=== PATIENT | male | born 1945 | race African-American/Black ===

== ENCOUNTER 2024-02-04 19:27 | Inpatient (IN) | payer MEDICARE, OTHER ==
[~2024-02-04] VITALS: Ht 182.9 cm; Wt 126.7 kg
[~2024-02-04 19:27] MED LIST: ACETAMINOPHEN W1 TA6 PO; FORTAMET1000 MG PO; LISINOPRIL/HCTZ1 TAB PO; NOVOLIN R100 U/ML IJ; PRILOSEC 20MG20 MG PO; VENTOLIN0.09 MG IH; WELLBUTRIN PO
[2024-02-04 21:00] VITALS: BP_SYST 126
--- NOTE | 2024-02-04 21:45 | NUR ---
PATIENT ARRIVED VIA EMS FROM [place]. UPON ARRIVAL PATIENT WAS NONVERBAL. CAITLIN RN REPORTED PATIENT WAS SENT FROM [place] TO [place] FOR STROKE LIKE SYMPTOMS AND WAS NONVERBAL ON ARRIVAL TO [place]. FAMILY REPORTS HE IS VERBAL AT BASELINE HOWEVER, HAS BEEN NONVERBAL WITH INFECTIONS IN THE PAST. NOTED TEMP OF 101.8, HR IN THE 120'S, AND 95% ON 2L. [place] PAPERWORK NOTED 1.5L PER NC AT [place]. CAITLIN REPORTED GIVEN INITIAL DOSES OF ZOSYN & VANCO. CAITLIN REPORTED PATIENT HAD A REDDY AND SUSTAIN SOME TYPE OF TRAUMA AND THEIR PROVIDER COULD NOT PLACE A SUPER PUBIC REDDY SO A TRIPLE LUMEN WAS PLACED SUPER PUBLICALLY AND NURSING HAS TO DRAIN BLADDER WITH MANNUAL SYRING. PER REPORT, PATIENT HAS MRSA IN HIS URINE AND IS PLACED ON ISOLATION PRECAUTIONS. LEFT AC IV TO INT. HOSPITALIST NOTIFED OF ARRIVAL, SEE ORDERS. FAMILY STAYING TILL PATIENT IS SETTLED THEN, THEY PLAN TO RETURN TOMORROW. PATIENT POSITIONED TO COMFORT AND PLACED IN YELLOW GOWN, SEE SHIFT ASSESSMENT FOR SKIN ISSUES. HEAD TO TOE ASSESSMENT COMPLETE. CALL LIGHT IN REACH. BED ALARM ON. PATIENT ACCROSS FROM DESK.
[2024-02-04 22:24] LABS: HEMOGLOBIN 11.4 g/dl (13.5-18.0); MEAN CELL VOLUME 85 fl (80.0-100.0); MEAN CORPUSCULAR HEMOGLOBIN 27 pg (27-31); MEAN CORPUSCULAR HGB CONC 32 g/dl (33.0-37.0); MEAN PLATELET VOLUME 10.4 fl (7.4-10.4); PLATELET COUNT 375 K/mm3 (130-400); RED BLOOD COUNT 4.24 M/mm3 (4.20-5.60)
--- NOTE | 2024-02-04 22:30 | NUR ---
LAB REPORTED CRITICAL WBC OF 21..4, CALLED RESULT TO HOSPITALIST WHO IS REVIEWING PATIENT'S CHART NOW, NO NEW ORDERS AT THIS TIME. PATIENT'S SUPER PUBIC PORT PULLED 125CC OF STEPH COLORED URINE, UA SENT.
[2024-02-04 22:39] VITALS: BP 126/57; PULSE 121; TEMP 101.8
[2024-02-04] MEDS ORDERED: NEURONTIN300 MG/CAP PO (22:43)
[2024-02-04] MEDS ORDERED: NEURONTIN600 MG/TAB PO (22:43)
[2024-02-04] MEDS ORDERED: NS 1,000 ML IV SCH (22:45)
[2024-02-04] MEDS ORDERED: LASIX 20MG TABL20 MG PO (22:45)
[2024-02-04] MEDS ORDERED: Acetaminophen 325 MG TAB PO PRN (22:45)
[2024-02-04] MEDS ORDERED: Ondansetron 4 MG/2 ML VIAL IV PRN (22:45)
[2024-02-04 22:46] LABS: ALBUMIN 3.6 g/dL (3.4-4.8); BILIRUBIN,TOTAL 0.7 mg/dL (0.2-1.2); CALCIUM 9.3 mg/dL (8.4-10.2); CREATININE, serum 1.19 mg/dL (0.72-1.25); MAGNESIUM 1.7 mg/dL (1.6-2.6); POTASSIUM 3.7 mEq/L (3.5-4.5); TOTAL PROTEIN 7.7 g/dl (6.2-8.1)
[2024-02-04 22:47] LABS: PH 6.5 (5.0-8.5); URINE APPEARANCE CLOUDY (CLEAR/HAZY); URINE BLOOD 3+ (NEGATIVE); URINE COLOR YELLOW (YELLOW); URINE GLUCOSE NEGATIVE (NEGATIVE); URINE KETONE NEGATIVE (NEGATIVE); URINE NITRATE NEGATIVE (NEGATIVE); URINE PROTEIN(semi-quant) 1+ (NEGATIVE)
[2024-02-04] MEDS ORDERED: INSULIN AS100 UNIT/3 SQ (22:47)
[2024-02-04] MEDS ORDERED: PLAVIX 75MG TAB75 MG PO (22:49)
[2024-02-04] MEDS ORDERED: OZEMPIC0.25 MG/02 SQ (22:51)
[2024-02-04 22:52] LABS: COLLECTION METHOD CLEAN CATCH
[2024-02-04] MEDS ORDERED: FLOMAX 0.40.4 MG/CAP PO (22:53)
[2024-02-04] MEDS ORDERED: PROTONIX 40MG T40 MG PO (22:53)
[2024-02-04] MEDS ORDERED: LEVAQUIN 750MG750 M1 PO (22:54)
[2024-02-04] MEDS ORDERED: CYMBALTA 30MG30 MG PO (22:54)
[2024-02-04] MEDS ORDERED: NORVASC 5MG5 MG/TAB PO (22:55)
[2024-02-04] MEDS ORDERED: LIPITOR 80MG80 MG PO (22:56)
[2024-02-04] MEDS ORDERED: K-DUR20 MEQ PO (22:56)
[2024-02-04] MEDS ORDERED: IPRATROPIUM BROM3 M1 IH (22:57)
[2024-02-04] MEDS ORDERED: LANTUS SOLOS100 U/ML SQ (22:59)
[2024-02-04] MEDS ORDERED: DESITIN MAXIMUM S40% TOP (23:00)
[2024-02-04] MEDS ORDERED: Albuterol/Ipratropium 3 MG-0.5 MG/3 ML Neb Soln IH PRN (23:00)
[2024-02-04] MEDS ORDERED: ASPIRIN 81M81 MG/TA2 PO (23:01)
[2024-02-04] MEDS ORDERED: VITAMIN C500 MG PO (23:01)
[2024-02-04] MEDS ORDERED: FERROUS SU325 MG/TAB PO (23:03)
[2024-02-04] MEDS ORDERED: PROSCAR 5MG5 MG PO (23:03)
[2024-02-04] MEDS ORDERED: REFRESH TEARS 330 ML OP (23:03)
[2024-02-04] MEDS ORDERED: TYLENOL 325MG325 MG PO (23:04)
[2024-02-04] MEDS ORDERED: MELATONIN5 M1 SL (23:06)
[2024-02-04] MEDS ORDERED: MULTI VITAMINS1 TAB PO (23:06)
[2024-02-04] MEDS ORDERED: MIRALAX PA17 GM/Dose PO (23:08)
[2024-02-04] MEDS ORDERED: HCTZ12.5TAB PO (23:17)
[2024-02-04] MEDS ORDERED: INSULIN GL100 UNIT/2 SQ (23:18)
[2024-02-04] MEDS ORDERED: GLUCOPHAGE500 MG/TAB PO (23:19)
[2024-02-04 23:22] LABS: ANISOCYTOSIS 3+; BAND 4 % (0-10); LYMPHOCYTE 11 % (20.0-51.0); NEUTROPHILS 74 % (42.0-75.2); PLATELET ESTIMATE NORMAL (NORMAL)
[2024-02-04 23:23] LABS: OVALOCYTES 1+
[2024-02-04] MEDS ORDERED: NS 500 ML IV ONE (23:30)
[2024-02-05] VITALS (11 sets, daily range): BP systolic 114–134; BP diastolic 50–62; PULSE 98–117; TEMP 98.2–100.2
[2024-02-05] MEDS ORDERED: Dextrose (Glucose) 15 GM (4 x 3.75 GM) Chewable TABLET PACK PO PRN (00:30)
[2024-02-05] MEDS ORDERED: Dextrose 50% Water 25 GM/50 ML SYRINGE IV PRN (00:30)
[2024-02-05] MEDS ORDERED: Glucagon 1 MG VIAL IM PRN (00:30)
[2024-02-05] MEDS ORDERED: Vancomycin 1.5 GM,Special Dose/Pharmacy Prepared 1.5 GM in NS 250 ML IV ONE (02:00)
--- NOTE | 2024-02-05 03:45 | NUR ---
RN UNABLE TO EXTRACT URINE FROM SUPER PUBIC TRIPLE LUMEN. PATIENT FOUND TO BED VERY WET. PATIENT HAS BEEN LEAKING URINE OFF & ON SINCE ADMISSION. PATIENT CLEANED UP, REPOSITIONED ONTO LEFT SIDE. PATIENT STILL IMOBILE BUT IS STARTING TO TRY AND COMMUNICATE WITH STAFF.
--- NOTE | 2024-02-05 05:34 | NUR ---
78 yo male admitted for further care and management of metabolic encephalopathy likely secondary to sepsis from a urinary source (history of MRSA urinary tract infections). ht 182.9 cm wt 126.7 kg (adj wt 97.2 kg) SCr 1.19 with estimated CrCl ~55 ml/min half life 17.9 hours Plan: Patient may not follow population based kinetics secondary to body habitus (BMI 37.9 kg/m2). Patient received an initial loading dose of vancomycin 1000 mg at the outside facility; will give a supplemental loading dose of vancomycin 1500 mg x1 for a total loading dose of 2500 mg (19.7 mg/kg); followed by a maintenance regimen of vancomycin 1500 mg iv q18h to target a goal trough of 10-15 mcg/ml. Will follow patient's renal function, micro data, and vancomycin levels as indicated to assess for any necessary changes to regimen. Thank you for this dosing consult.
[2024-02-05 06:17] LABS: HEMOGLOBIN 10.5 g/dl (13.5-18.0); MEAN CELL VOLUME 85 fl (80.0-100.0); MEAN CORPUSCULAR HEMOGLOBIN 27 pg (27-31); MEAN CORPUSCULAR HGB CONC 32 g/dl (33.0-37.0); MEAN PLATELET VOLUME 10.3 fl (7.4-10.4); PLATELET COUNT 318 K/mm3 (130-400); RED BLOOD COUNT 3.89 M/mm3 (4.20-5.60); REDCELL DISTRIBUTION WIDTH-CV 19.1 % (11.5-14.5)
[2024-02-05 06:22] LABS: HEMATOCRIT 33.2 % (42.0-52.0)
[2024-02-05 06:39] LABS: ALBUMIN 3.1 g/dL (3.4-4.8); BILIRUBIN,TOTAL 0.8 mg/dL (0.2-1.2); CALCIUM 8.8 mg/dL (8.4-10.2); CREATININE, serum 1.06 mg/dL (0.72-1.25); POTASSIUM 3.3 mEq/L (3.5-4.5); TOTAL PROTEIN 6.9 g/dl (6.2-8.1)
[2024-02-05 07:23] LABS: ANISOCYTOSIS 3+; BAND 5 % (0-10); HYPOCHROMIA 1+; LYMPHOCYTE 14 % (20.0-51.0); NEUTROPHILS 74 % (42.0-75.2); OVALOCYTES 1+; PLATELET ESTIMATE NORMAL (NORMAL)
[2024-02-05] MEDS ORDERED: Insulin Lispro (HumaLOG) SQ SCH (08:00)
[2024-02-05] MEDS ORDERED: Atorvastatin 80 MG TAB PO SCH (08:22)
--- NOTE | 2024-02-05 08:47 | NUR ---
Patient resting in bed, more alert this am. Not able to state where he is, but did know his birthday and responding to questions, denies pain when asked. Repositioned in bed with brian STEVE provided for incontinence of urine. Nixon DODD rounded, villaseñor insertion attempt made. Patient made NPO for to complete bedside cysto late this afternoon. rounded. Plan of care reviewed. Scds Ble. High fall risk protocol. Q2 turns to maintain skin integrity. Will monitor closely.
[2024-02-05] MEDS ORDERED: Miconazole 2% Topical Powder BOTTLE TP SCH (09:00)
[2024-02-05] MEDS ORDERED: DULoxetine 30 MG CAP PO SCH (09:00)
[2024-02-05] MEDS ORDERED: Sennosides/Docusate 8.6-50 MG TAB PO SCH (09:00)
[2024-02-05] MEDS ORDERED: Finasteride 5 MG TAB PO SCH (09:00)
[2024-02-05] MEDS ORDERED: Clopidogrel 75 MG TAB PO SCH (09:00)
[2024-02-05] MEDS ORDERED: Gabapentin 300 MG CAP PO SCH ×2 (09:00→12:00)
[2024-02-05] MEDS ORDERED: PEPCID 20MG TAB20 MG PO (10:28)
--- NOTE | 2024-02-05 10:59 | NUR ---
POSITIVE BLOOD CULTURES REPORTS TO Eladia Callaway FROM [facility].
[2024-02-05] MEDS ORDERED: ATROVENT I0.2 MG/1 M IH (12:54)
[2024-02-05] MEDS ORDERED: ATHLETE'S FOOT1% TP (12:55)
[2024-02-05] MEDS ORDERED: Vancomycin 1.5 GM,Special Dose/Pharmacy Prepared 1.5 GM in NS 250 ML IV SCH (13:00)
--- NOTE | 2024-02-05 13:06 | NUR ---
SW met with patient earlier this morning to complete initial assessment for discharge planning. Patient unable to answer all questions due to confusion. SW met later with patient, and son to complete assessment. Sunil ([phone] or home [phone]) confirmed that she is DPOA for patient. Patient is a LTC resident at [facility] in [place] for past 4 years. He is bed/wheelchair bound and does not ambulate. Patient's son Gino ([phone]) reports that patient is normally alert and oriented but slow to process thoughts at times due to previous stroke. Plan is for patient to return to [facility] at discharge. Discharge plan: [facility]
[2024-02-05] MEDS ORDERED: Lidocaine 2% (20 MG/ML) 20 ML UROJET MM ONE (19:06)
--- NOTE | 2024-02-05 20:00 | NUR ---
PATIENT IS ORIENTED X3, A LITTLE SLOW TO RESPOND AT TIMES BUT MUCH IMPROVED SINCE ADMISSION WHEN HE WAS NONVERBAL. NOTED TEMP OF 100.2, GAVE PRN TYLENOL WITH HS MEDS. UROLOGY PERFORMED BEDSIDE CYSTO AND PLACED REDDY AT SHIFT CHANGE. REDDY TO DD WITH RED-TINGED URINE AND A FEW TISSUE CLOTS NOTED. IV FLUIDS INFUSING VIA PUMP INTO LEFT AC IV. PATIENT ON ISOLATION FOR MRSA. HEAD TO TOE ASSESSMENT COMPLETE. NOTED SKIN ISSUES, SEE SHIFT ASSESSMENT. PATIENT RESTING UP IN BED WITH CALL LIGHT IN REACH AND BED ALARM ON.
--- NOTE | 2024-02-05 20:08 | NUR ---
Patient resting in bed. He remains more oriented, was able to tell where he was born & where he lives and about his job in the . Bedside cysto with villaseñor placement completed by . Patient tolerated well. (suprapubic triple lumen in bladder removed by ). Patient family back at bedside. Patient was frequently incontinent of urine today. Pericares proivded and repositioning in bed. Heels floated and heel protectors on. High fall risk protocol followed.
[2024-02-06] VITALS (12 sets, daily range): BP systolic 113–135; BP diastolic 50–92; PULSE 87–98; TEMP 98.1–99.1
[2024-02-06 07:10] LABS: BASO # 0.1 K/mm3 (0.0-0.2); BASO % 0.7 % (0.0-2.0); EOS # 0.2 K/mm3 (0.0-0.7); EOS % 2.2 % (0.0-4.0); GRAN # 7.6 K/mm3 (1.4-6.5); GRAN % 69.2 % (42.2-75.2); LYMPH # 1.6 K/mm3 (1.2-3.4); LYMPH % 14.7 % (20.0-51.0); MEAN CELL VOLUME 88 fl (80.0-100.0); MEAN CORPUSCULAR HGB CONC 31 g/dl (33.0-37.0); MONO # 1.3 K/mm3 (0.1-0.6); MONO % 11.8 % (1.7-9.3); PLATELET COUNT 289 K/mm3 (130-400); RED BLOOD COUNT 3.57 M/mm3 (4.20-5.60); REDCELL DISTRIBUTION WIDTH-CV 18.8 % (11.5-14.5)
[2024-02-06 07:13] LABS: HEMATOCRIT 31.4 % (42.0-52.0); HEMOGLOBIN 9.7 g/dl (13.5-18.0); MEAN CORPUSCULAR HEMOGLOBIN 27 pg (27-31)
--- NOTE | 2024-02-06 07:53 | NUR ---
0650 - Pt awake and laying in bed. IV abx running at this time. Pt does not complain of pain. No other concerns at this time.
[2024-02-06 08:12] LABS: ALBUMIN 2.8 g/dL (3.4-4.8); BILIRUBIN,TOTAL 0.6 mg/dL (0.2-1.2); CALCIUM 8.6 mg/dL (8.4-10.2); CREATININE, serum 0.83 mg/dL (0.72-1.25); POTASSIUM 3.2 mEq/L (3.5-4.5); TOTAL PROTEIN 6.6 g/dl (6.2-8.1)
--- NOTE | 2024-02-06 11:40 | NUR ---
0800 - Pt awake, laying in bed on morning assessment and med pass. Pt does not complain of pain at this time. IV fluids and abx running at this time. No other concerns at this time.
--- NOTE | 2024-02-06 11:46 | NUR ---
0800 - This nurse charted against 0800 dose of insulin. PCT verbally told this nurse blood sugar was a different number than what it actually was.
--- NOTE | 2024-02-06 12:25 | NUR ---
Clinical updates sent to [facility] via secure email.
--- NOTE | 2024-02-06 12:30 | NUR ---
PATIENT ALERT AND ORIENTED BUT VIEJAS. PATIENT HERE FOR UROSEPSIS. REDDY TO DD WITH PEACH COLORED URINE WITH SCATTERED CLOTS OF TISSUE. IV TO LEFT AC WITH NS RUNNING AT 125ML/HOUR. PATIENT ON 2LNC. SEE SKIN ASSESSMENT. PATIENT RESTING IN BED. CALL LIGHT IN REACH. BED ALARM ON.
--- NOTE | 2024-02-06 13:13 | NUR ---
sawmill worker spoke with Director Virginia at [facility] to inquire if they want him back skilled. She declines this as pt is on a [facility] contract and will return with this. SW attended clinical rounding and was informed pt is waiting on the cultures to come back then could discharge likely tomorrow. Discharge Plan: return to [facility]
--- NOTE | 2024-02-06 20:16 | NUR ---
SHIFT ASSESSMENT COMPLETED. PATIENT RESTING IN BED WATCHING TV. ALL NIGHT MEDS GIVEN ORDERED. REDDY IN PLACE YELLOW URINE DRAINING. TELE IN PLACE HR 91 BPM. PATIENT HAS EDEMA BILATERALY UPPER AND LOW EXTRIMITIES PITTING +1. PATIENT STATES NO PIAN AT THIS TIME. BED ALARM ON AND CALL LIGHT IN REACH
[2024-02-07] VITALS (11 sets, daily range): BP systolic 135–155; BP diastolic 54–90; PULSE 78–98; TEMP 97.7–99.3
--- NOTE | 2024-02-07 05:45 | NUR ---
PATIENT SLEPT WELL THROUGHOUT THE NIGHT, NURSING STAFF COMPLETED Q2 TURNS THROUGH THE NIGHT. PATIENT HAS NO REQUEST OR CONCERNS AT THIS TIME. PATIENT CURRENTLY TURNED TO THE RIGHT. FOLY IN PLACE WITH YELLOW URIN FLOWING W/ SOME SEDIMENT/MUCUS PRESENT. BED ALARM ON AND CALL LIGHT IN REACH
[2024-02-07 06:32] LABS: BASO % 0.4 % (0.0-2.0); EOS # 0.3 K/mm3 (0.0-0.7); EOS % 3.9 % (0.0-4.0); GRAN # 4.7 K/mm3 (1.4-6.5); GRAN % 60.4 % (42.2-75.2); LYMPH # 1.9 K/mm3 (1.2-3.4); LYMPH % 24.6 % (20.0-51.0); MEAN CELL VOLUME 87 fl (80.0-100.0); MEAN CORPUSCULAR HGB CONC 31 g/dl (33.0-37.0); MEAN PLATELET VOLUME 10.8 fl (7.4-10.4); MONO # 0.8 K/mm3 (0.1-0.6); MONO % 9.8 % (1.7-9.3); PLATELET COUNT 279 K/mm3 (130-400); RED BLOOD COUNT 3.52 M/mm3 (4.20-5.60); REDCELL DISTRIBUTION WIDTH-CV 18.5 % (11.5-14.5)
[2024-02-07 06:43] LABS: HEMATOCRIT 30.7 % (42.0-52.0); HEMOGLOBIN 9.5 g/dl (13.5-18.0); MEAN CORPUSCULAR HEMOGLOBIN 27 pg (27-31)
[2024-02-07 06:55] LABS: ALBUMIN 2.8 g/dL (3.4-4.8); BILIRUBIN,TOTAL 0.5 mg/dL (0.2-1.2); CALCIUM 8.8 mg/dL (8.4-10.2); CREATININE, serum 0.79 mg/dL (0.72-1.25); POTASSIUM 3.3 mEq/L (3.5-4.5); TOTAL PROTEIN 6.8 g/dl (6.2-8.1)
--- NOTE | 2024-02-07 07:03 | NUR ---
Report received. Pt is awake, laying in bed. Pt O2 pulled down at this time, reapplied to nares. Pt does not complain of pain at this time. No other concerns. Call light within reach. Bed alarm on. NS running at 125 ml/hr.
--- NOTE | 2024-02-07 10:08 | NUR ---
0830 - Pt awake and sitting up in bed, eating breakfast for morning assessment and med pass. Pt does not complain of pain at this time. Pt fluids running, abx administered at this time. No other concerns. Call light within reach. Bed alarm set.
[2024-02-07] MEDS ORDERED: amLODIPine 5 MG TAB PO SCH (11:00)
--- NOTE | 2024-02-07 12:58 | NUR ---
Pt continues to be incontinent of bowel, villaseñor catheter in place. Q2 turns contined.
--- NOTE | 2024-02-07 13:21 | NUR ---
Data: Patient accepted spiritual care visit offered during Party Host/Hostess rounds. Patient is known to Party Host/Hostess from another healthcare setting. Assessment: Patient is pleased with his nursing staff. They are very nice to him. Patient requested a coffee. Plan of Care: Party Host/Hostess provided supportive listening, a prayer, and a cup of coffee. Patient thanked Party Host/Hostess for the visit and the coffee. Chaplains will remain available as needed/requested while Patient is admitted to this hospital.
--- NOTE | 2024-02-07 14:18 | NUR ---
RADHA faxed clinical updates to [facility]. Discharge Plan: return to [facility]
--- NOTE | 2024-02-07 19:15 | NUR ---
report received from glenda ohlland. pt resting in bed watching tv. pt continues with confusion but is pleasant. pt denies pain. fall precautions in place. call light in reach. all needs met at this time.
--- NOTE | 2024-02-07 20:20 | NUR ---
shift assessment complete, see documentation. pt tolerated hs meds well. pt denies pain but states he "feels the same as he has all week". pt continues to be confused but compliant with cares. fall precautions in place. call light in reach. all needs met at this time.
[2024-02-08] VITALS (13 sets, daily range): BP systolic 142–160; BP diastolic 62–74; PULSE 72–81; TEMP 98.2–100
--- NOTE | 2024-02-08 03:17 | NUR ---
pt running slight temp of 100.0. prn tylenol administered per orders.
[2024-02-08 06:10] LABS: BASO % 0.4 % (0.0-2.0); EOS # 0.3 K/mm3 (0.0-0.7); EOS % 4.7 % (0.0-4.0); GRAN % 57.9 % (42.2-75.2); LYMPH # 1.9 K/mm3 (1.2-3.4); LYMPH % 26.6 % (20.0-51.0); MEAN CELL VOLUME 85 fl (80.0-100.0); MEAN CORPUSCULAR HGB CONC 31 g/dl (33.0-37.0); MEAN PLATELET VOLUME 10.5 fl (7.4-10.4); MONO # 0.7 K/mm3 (0.1-0.6); MONO % 9.4 % (1.7-9.3); PLATELET COUNT 319 K/mm3 (130-400); RED BLOOD COUNT 3.62 M/mm3 (4.20-5.60); REDCELL DISTRIBUTION WIDTH-CV 17.8 % (11.5-14.5)
[2024-02-08 06:29] LABS: CALCIUM 9.1 mg/dL (8.4-10.2); CREATININE, serum 0.84 mg/dL (0.72-1.25); POTASSIUM 3.5 mEq/L (3.5-4.5)
[2024-02-08 06:33] LABS: HEMATOCRIT 30.9 % (42.0-52.0); HEMOGLOBIN 9.5 g/dl (13.5-18.0); MEAN CORPUSCULAR HEMOGLOBIN 26 pg (27-31)
--- NOTE | 2024-02-08 06:56 | NUR ---
Report received. Pt awake, laying down in bed. Fluids running, 125 ml/hr. Pt does not complain of pain. No other concerns at this time. Call light within reach. Bed alarm set.
[2024-02-08] MEDS ORDERED: Insulin Glargine-ygfn (Lantus) SQ SCH (09:00)
--- NOTE | 2024-02-08 09:46 | NUR ---
0800 - Pt awake, laying down in bed for morning assessment and med pass. Pt remains NPO at this time for preparation for procedure, IV abx administered. Pt continues to be Q2 turn, bedrest. Pt does not complain of pain at this time. No other concerns at this time. Call light within reach. Bed alarm set.
--- NOTE | 2024-02-08 10:32 | NUR ---
This nurse went into pt room to prep pt for NEWTON procedure. Family had fed pt stock tomatoes prior to entering room. slab miller operator notified. Awaiting new orders.
[2024-02-08 12:29] LABS: URINE APPEARANCE CLEAR (CLEAR/HAZY); URINE BLOOD 2+ (NEGATIVE); URINE COLOR YELLOW (YELLOW); URINE GLUCOSE 2+ (NEGATIVE); URINE KETONE NEGATIVE (NEGATIVE); URINE NITRATE NEGATIVE (NEGATIVE); URINE PROTEIN(semi-quant) NEGATIVE (NEGATIVE); URINE UROBILINOGEN 0.2 E.U/dL (0.2-1.0)
--- NOTE | 2024-02-08 13:00 | NUR ---
Family in room at this time. Updated them on the NEWTON being cancelled due to him eating some food brought in. Informed them that he will not be able to eat or drink anything after midnight for NEWTON tomorrow. Consent signed by at this time
[2024-02-08 13:43] LABS: COLLECTION METHOD CATHETER
--- NOTE | 2024-02-08 14:58 | NUR ---
Continue to reposition pt q2h. Pt just repositioned and clean up. Pt had a small incontinent bowel movement. Bed alarm on, call light within reach.
--- NOTE | 2024-02-08 15:01 | NUR ---
deli worker attended clinical rounding and was informed pt will need IV Antibiotics and is waiting on the ID consult. SW faxed updates to [facility]. Discharge Plan: return to [facility]
--- NOTE | 2024-02-08 19:41 | NUR ---
CONSULTED WITH INFECTIOUS DISEASE. REQUEST FROM [facility] FOR PATIENT BASELINE MENTAL STATUS. CALL PLACED TO [facility] IN [place] . ANA LILIA STATED BASELINE IS AXO X3. REASSESSED MR. WESLEY'S MENTAL STATUS AND EXPLAINED TO HIM HE WAS TRANSFERRED FROM [facility] TO [facility] AND THEN TO US HERE AT [facility] IN [place]. HE VERBALIZES UNDERSTANDING AND WHEN QUESTIONED AGAIN, "WHAT CITY ARE YOU IN?" PATIENT STATED ACCURATELY, "I'M IN [place]." HE COULD NOT PRONOUNCE HOSPITAL NAME. LUPILLO RECALLS 'S NAME, HIS AND CITY HE IS CURRENTLY IN. HE CAN RECALL WITH SOME PROMPTING WHAT HIS CURRENT CONDITION IS-UTI. HE IS HOWEVER, SLOW TO RESPOND.
--- NOTE | 2024-02-08 20:00 | NUR ---
UPON SHIFT ASSESSMENT, CARMEN WAS AWAKE IN BED AND AXO X3. AFFECT APPEARED BLUNTED AND HE WAS SLOW TO RESPOND TO ASSESSMENT QUESTIONS. HOWEVER, HE WAS ABLE TO STATE FULL NAME, , CITY AND SITUATION. REDDY DRAINING PALE-YELLOW URINE. MEATUS IS CDI WITH NO DRAINAGE. PATIENT C/O OF GENERALIZED PAIN BUT CAN'T ARTICULATE SPECIFIC LOCATION. MED PASS INCLUDED AMBAR AND WILL REASSESS PAIN. HAND HARVEST WORKER EQUAL. BACK OF THIGHS EXHIBIT EXCORIATION AND MEPIPLEX PLACED. POSSIBLE MOISTURE RELATED DERMATITIS. SACRUM RED AND MEPIPLEX PLACED. VS ARE WNL AND TELE IS CURRENTLY NS. CALL LIGHT WITHIN REACH, BED ALARM ON.
--- NOTE | 2024-02-08 23:57 | NUR ---
ALERTED BY TELE; PATIENT HAD 7 SECOND RUN OF SINUS TACH AT 141 BPM. NOTOFIED HOSPITALIST ADEOLA. NO ORDERS GIVEN
[2024-02-09] VITALS (12 sets, daily range): BP systolic 122–155; BP diastolic 57–79; PULSE 77–88; TEMP 97.6–99.3
--- NOTE | 2024-02-09 00:26 | NUR ---
ALERTED BY TELE-SECOND INTERPRTATION OF PREVIOUS 7 SECOND RUN OF SINUS TACH NOW INTERPRETS AFIB-RVR. NOTIFIED HOSPITALIST ADEOLA. NO NEW ORDERS. PATIENT SLEEPING, VS ARE STABLE.
[2024-02-09 05:56] LABS: BASO % 0.5 % (0.0-2.0); EOS # 0.3 K/mm3 (0.0-0.7); EOS % 4.4 % (0.0-4.0); GRAN # 3.4 K/mm3 (1.4-6.5); GRAN % 56.2 % (42.2-75.2); LYMPH # 1.8 K/mm3 (1.2-3.4); LYMPH % 28.8 % (20.0-51.0); MEAN CELL VOLUME 86 fl (80.0-100.0); MEAN CORPUSCULAR HGB CONC 31 g/dl (33.0-37.0); MEAN PLATELET VOLUME 10.4 fl (7.4-10.4); MONO # 0.6 K/mm3 (0.1-0.6); MONO % 9.1 % (1.7-9.3); PLATELET COUNT 366 K/mm3 (130-400); REDCELL DISTRIBUTION WIDTH-CV 17.9 % (11.5-14.5)
[2024-02-09 05:59] LABS: HEMATOCRIT 31.9 % (42.0-52.0); HEMOGLOBIN 9.9 g/dl (13.5-18.0); MEAN CORPUSCULAR HEMOGLOBIN 27 pg (27-31)
[2024-02-09 06:17] LABS: CALCIUM 9.4 mg/dL (8.4-10.2); CREATININE, serum 0.8 mg/dL (0.72-1.25); MAGNESIUM 1.6 mg/dL (1.6-2.6); POTASSIUM 3.2 mEq/L (3.5-4.5)
[2024-02-09] MEDS ORDERED: *Potassium Replacement Protocol MC SCH (08:45)
[2024-02-09] MEDS ORDERED: Insulin Glargine-ygfn (Lantus) SQ SCH (09:00)
--- NOTE | 2024-02-09 09:00 | NUR ---
PATIENT IS ALERT AND ORIENTED TO PERSON, TIME, AND SITUATION. NOT ABLE TO CORRECTLY TELL ME WHERE HE IS. VSS. NO C/O PAIN OR N/V. PATIENT IS NPO FOR SCHEDULED NEWTON THIS MORNING. IV IN LAC WAS PULLED OUT BY PATIENT. NEW IV PLACED IN R HAND. PATIENT IS ON CONTACT PRECAUTIONS. PATIENT IS TURNED Q2H. SCDS ON. OXYGEN VIA NASAL CANNULA AT 2L. CALL LIGHT WITHIN REACH. NO FURTHER NEEDS AT THIS TIME.
--- NOTE | 2024-02-09 09:30 | NUR ---
ATTEMPTED TO CONTACT X2 TO COME TO HOSPITAL AND SIGN ANESTHESIA CONSENT FORM. UNABLE TO REACH PATIENT'S .
--- NOTE | 2024-02-09 10:15 | NUR ---
PATIENT SCHEDULED FOR A NEWTON TODAY. UNABLE TO REACH FOR ANESTHESIA TO OBTAIN CONSENT, PATIENT A&O X2.
--- NOTE | 2024-02-09 10:15 | NUR ---
ATTEMPTED TO CONTACT PATIENT'S AGAIN REGARDING ANESTHESIA CONSENT FORMS THAT NEED TO BE SIGNED FOR NEWTON PROCEDURE. UNABLE TO REACH HER.
--- NOTE | 2024-02-09 11:35 | NUR ---
THIS NURSE HAS MADE SEVERAL ATTEMPTS AT CONTACTING PATIENT'S TO OBTAIN CONSENT FOR ANESTHESIA. NO SUCCESS.
[2024-02-09] MEDS ORDERED: Potassium Chloride 100 ML IV SCH ×2 (12:30→19:45)
--- NOTE | 2024-02-09 13:20 | NUR ---
[employer] WORK CONTACTED THIS NURSE TO PROVIDE TWO PHONE NUMBERS FOR PATIENT'S . CALLED TO ASK IF SHE WAS COMING TO VISIT TODAY. EXPLAINED THAT SHE DOES NOT HAVE A RIDE FOR TWO DAYS. CALLED ANESTHESIA TO REPORT THAT THIS NURSE MADE CONTACT WITH IF THEY WANT TO COME GRAB THE PATIENT. ANESTHESIA REPORTS THAT 1400 IS A GOOD TIME FOR THE PROCEDURE. THIS NURSE WENT TO LUNCH. AFTER LUNCH THIS NURSE CALLED DR. CUBA TO REPORT THAT PATIENT HAD NOT HAD THEIR PROCEDURE. CALLED ANESTHESIA, WAS TOLD THAT THEY COULD NOT MAKE CONTACT WITH AND PROCEDURE WILL TAKE PLACE MONDAY AT 1000. REPORTED THIS TO DR CUBA AND CHARGE NURSE.
--- NOTE | 2024-02-09 14:02 | NUR ---
billet worker faxed updates to [facility]. RADHA spoke with Director [place] who reports they have a DPOA-HC listing , Sunil [phone] and son, Gino. RADHA received this via email and placed on chart. RADHA provided these numbers to VANDANA Finley. Discharge Plan: return to [facility]
--- NOTE | 2024-02-09 18:01 | NUR ---
PATIENT ALERT TO SELF AND TIME BUT CANNOT RECALL THE SITUATION AND FORGETS EASILY. PATIENT REMOVED IV TO LEFT AC. NEW IV PLACED INTO RIGHT HAND. PATIENT ON 2L NC WHICH IS BASELINE. SEE SKIN ASSESSMENT. REDDY TO DD WITH YELLOW OUTPUT. PATIENT DOES NOT APPEAR TO BE IN ANY PAIN. NO FURTHER NEEDS. CALL LIGHT IN REACH. BED ALARM ON.
--- NOTE | 2024-02-09 20:30 | NUR ---
UPON SHIFT ASSESSMENT, CARMEN WAS AWAKE IN BED WATCHING TV. NC O2 WAS PULLED OUT AND HE WAS FIDGETING WITH O2 TUBING. REDDY DRAING PALE YELLOW CLEAR URINE. REORIENTED PATIENT AND REINSTALLED NC 02. PATIENT IS AXO X2- TO SELF AND ONLY. PATIENT APPEARS DISENGAGED AND IS SLOWER TO PROCESS THAN LAST NIGHT. VS ARE WNL. CALL LIGHT WITHIN REACH.
--- NOTE | 2024-02-09 23:54 | NUR ---
ENTERED PATIENT'S ROOM TO REPOSITION. PATIENT DISLODGED O2 NC AGAIN. VS ARE WNL. REAPPLIED CANNULA, GAVE PATIENT TOWEL TO DISTRACT FIDGETING.
[2024-02-10] VITALS (12 sets, daily range): BP systolic 117–140; BP diastolic 52–69; PULSE 77–93; TEMP 98.2–99.4
--- NOTE | 2024-02-10 03:05 | NUR ---
ROUNDED ON PATIENT. CARMEN SLEEPING SOUNDLY SUPINE. NO SIGNS OF DISTRESS. VS ARE WNL.
[2024-02-10 06:33] LABS: CALCIUM 9.3 mg/dL (8.4-10.2); CREATININE, serum 0.85 mg/dL (0.72-1.25); POTASSIUM 3.5 mEq/L (3.5-4.5)
[2024-02-10] MEDS ORDERED: Insulin Glargine-ygfn (Lantus) SQ ONE (09:00)
--- NOTE | 2024-02-10 09:02 | NUR ---
Patient resting in bed. Alert this am, Able to report full name & date of . Responds appropriately to questions asked. He recognized Renita the Pam who he sees at [facility] for services. Called to Dr. Gil and made her aware Skinny fell off Mar. Orders obtained. Skinny hung after pharmacy verified. Complete bed bath done with MOSAIC LAYER & linen change. 3 step barrier process completed to backside, serve excoriation noted. Breakfast ordered and tolerating without nausea. Crump to DD with adeuqate output. IV to Right hand. Scds & heels floated to BLE. Will monitor. , high fall risk protocol followed/
--- NOTE | 2024-02-10 12:17 | NUR ---
Patient resting in bed. lunch ordered. Denies pain. Repositioned in bed. Will monitor.
--- NOTE | 2024-02-10 13:49 | NUR ---
Patient continues to work on lunch tray. Denies needs. Will monitor
--- NOTE | 2024-02-10 14:33 | NUR ---
Patient repositioned in bed. Incontinence cares provided. 3 step barrier process used.
--- NOTE | 2024-02-10 16:56 | NUR ---
Patietn repostioned in bed for dinner, no incontinence at this time. Set up to eat. In good spirits. Will vinicius
--- NOTE | 2024-02-10 18:03 | NUR ---
Patient continues to slowly work on his dinner tray, denies needs, will report off to night nurse
--- NOTE | 2024-02-10 20:16 | NUR ---
Patient assessed at this time, see shift assessment, denies pain or discomfort, had loose bm at this time, pericares provided, catheter care provided, repositioned to his left side, took pills fine, denies further needs, call light and personal items within reach, will continue to monitor.
[2024-02-10] MEDS ORDERED: Insulin Glargine-ygfn (Lantus) SQ SCH (21:00)
--- NOTE | 2024-02-10 23:00 | NUR ---
Noted that his right upper back thigh/bottom was bleeding from scratching, applied foam dressing, repositioned patient to his right side, will continue to monitor.
[2024-02-11] VITALS (11 sets, daily range): BP systolic 126–132; BP diastolic 47–57; PULSE 76–91; TEMP 97.4–98.8
--- NOTE | 2024-02-11 01:15 | NUR ---
Repositioned patient to the left side, IV zosyn still infusing at this time, denies further needs, will continue to monitor.
--- NOTE | 2024-02-11 08:20 | NUR ---
pt asleep upon entry, easily arousable. pt oriented to person. vss and tele in place. meds given and assessment complete. pt denies pain this morning. villaseñor to dd w clear yellow urine output. pt repositioned to right side, mepilex dressing to coccyx is cdi. dressing to right thigh intact, excoriation to both thighs. pt tolerated breakfast without difficulty. fall precautions in place. call light in reach. pt denies needs at this time.
[2024-02-11] MEDS ORDERED: Insulin Glargine-ygfn (Lantus) SQ SCH ×2 (09:00→21:00)
[2024-02-11] MEDS ORDERED: Insulin Glargine-ygfn (Lantus) SQ ONE (09:45)
--- NOTE | 2024-02-11 10:44 | NUR ---
pt repositioned to left side. pt reports no needs "at this present time". call light in reach.
[2024-02-11] MEDS ORDERED: Insulin Lispro (HumaLOG) SQ SCH (17:00)
--- NOTE | 2024-02-11 18:48 | NUR ---
pt resting in bed. no needs at this time. report given to Katiana ROSS.
--- NOTE | 2024-02-11 21:07 | NUR ---
Patient assessed at this time, see shift assessment, denies pain or discomfort, still with IV infusing well on right hand, with villaseñor to dependent drainage draining clear yellow urine, remains on room air, repositioned an hour ago by these 2 techs, SCD's on, heel protectors on, denies further needs, call light and personal items within reach, fall precautions in place, will continue to monitor.
[2024-02-12] VITALS (11 sets, daily range): BP systolic 127–149; BP diastolic 55–79; PULSE 78–86; TEMP 98.4–983.3
--- NOTE | 2024-02-12 00:29 | NUR ---
Edd provided at this time including cather care, changed the mepilex to his bottom, noted smeared BM, cleansed, applied cream and powder and changed the foam dressing to his right upper thigh (back), repositioned patient to his left side, denies further needs, NPO starting at this time for his procedure tommorow.
--- NOTE | 2024-02-12 04:21 | NUR ---
Repositioned patient to his right side, denies further needs.
[2024-02-12] MEDS ORDERED: Insulin Glargine-ygfn (Lantus) SQ SCH (09:00)
--- NOTE | 2024-02-12 09:39 | NUR ---
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 He has been resting in bed. He has been NPO. Will await his return.
[2024-02-12] MEDS ORDERED: Lidocaine PF 2% (20 MG/ML) 5 ML VIAL ONE (10:19)
[2024-02-12] MEDS ORDERED: ZOSYN 4 GM-0.51 PD1 IV (11:21)
[2024-02-12] MEDS ORDERED: SENEXON-S 50-81 EACH PO (11:29)
--- NOTE | 2024-02-12 11:30 | NUR ---
plaster and stucco worker attended clinical rounding and was informed pt will have a NEWTON at 10am which will determine his IV Antibiotic need and frequency. This will be every four hours. RADHA called [facility], Director Virginia and discussed this. She reports they can do Q4. RADHA faxed updates to [facility]. RADHA was later informed pt can discharge today and would only need one week of antibiotcs. RADHA informed [place] of this who can transport pt at 1pm. RADHA attempted to call pt's , Sunil as he is in isolation status and her phone did not go to voicemail and continued to ring each attempt. RADHA called pt's son, Gino who answered and was agreeable to discharge today. RADHA completed IM from Medicare. He verbalized understanding and provided verbal consent. Original in chart and copy provided. RADHA informed Clerk Samano of transport time. RADHA left voicemail to Dr. Tay for discharge orders to LTC today. RADHA faxed discharge orders to [facility]. Discharge Plan: 1pm to [facility]
--- NOTE | 2024-02-12 13:45 | NUR ---
Patient ready for discharge. Social work set up transport. AIV completed PICC line insertion. Renzo completed and vitals stable. INT DC. Patient used vesna lift to transfer to wheelchair. Family assisted patient with lunch prior to discharge. Reports called to [facility] nurse and questions answered. PAckey sent with transporation.
== END 2024-02-12 14:34 | DRG 871 ==
LOC: MEDICAL 19:27 → SURG 21:36
PROVIDERS: Internal Medicine; Internal Medicine Infectious Disease; Physician Assistant; ADMIT Internal Medicine
PROC: 02HV33Z Insertion of Infusion Device into Superior Vena Cava, Percutaneous Approach (ICD-10-PCS; principal; 2024-02-04)
PROC: 0T7D8DZ Dilation of Urethra with Intraluminal Device, Via Natural or Artificial Opening Endoscopic (ICD-10-PCS; 2024-02-04)
DX: A41.9 Sepsis, unspecified organism (principal); G93.41 Metabolic encephalopathy; N39.0 Urinary tract infection, site not specified; J96.10 Chronic respiratory failure, unspecified whether with hypoxia or hypercapnia; R33.9 Retention of urine, unspecified; N35.919 Unspecified urethral stricture, male, unspecified site; J44.9 Chronic obstructive pulmonary disease, unspecified; Z86.73 Personal history of transient ischemic attack (TIA), and cerebral infarction without residual deficits; I10 Essential (primary) hypertension; F32.A Depression, unspecified; E11.9 Type 2 diabetes mellitus without complications; Z79.4 Long term (current) use of insulin; R53.81 Other malaise
CPT/HCPCS: C1751; C1769; J1650; J1815; J2543; J2704; J3370; J3480; J7030; J7040; J7050; Q3014